=== PATIENT | female | born 1990 | race Caucasian/White ===

== ENCOUNTER 2018-11-10 09:59 | Emergency (ER) | payer MEDICAID ==
[~2018-11-10] VITALS: Ht 167.6 cm; Wt 128.0 kg
[2018-11-10] MEDS ORDERED: ACET-2178 PO (10:05)
[2018-11-10 10:45] VITALS: BP 144/82
[2018-11-10] MEDS ORDERED: AMOXICILLIN/POTASSIUM CLAVULANATE 875/125MG TAB PO ONE (10:45)
[2018-11-10] MEDS ORDERED: ACETAMINOPHEN 325MG TABLET PO ONE (10:45)
[2018-11-10] MEDS ORDERED: IBUPROFEN 800MG TABLET PO ONE (10:45)
== END 2018-11-10 11:40 | disposition home or self-care (01) ==
LOC: ER 09:59
DX: K04.7 Periapical abscess without sinus (principal); R68.84 Jaw pain; R51 Headache; F12.10 Cannabis abuse, uncomplicated; Z90.49 Acquired absence of other specified parts of digestive tract
CPT/HCPCS: 99284